=== PATIENT | female | born 1965 | race Caucasian/White ===

== ENCOUNTER 2016-12-21 21:49 | Emergency (ER) | payer MEDICAID ==
[~2016-12-21] VITALS: Ht 160 cm; Wt 90.3 kg
[~2016-12-21 21:49] MED LIST: Z.0.NO CURRENT MEDS
[2016-12-21 21:55] VITALS: PULSE 91; RESP 18; TEMP 98.3; O2SAT 97
[2016-12-21] MEDS ORDERED: ALPR0.5T3 PO (22:03)
--- NOTE | 2016-12-21 22:15 | PD ---
HPI Chief Complaint: Skin Problem Time Seen by Provider: 22:00 Travel History International Travel<30 days: No Contact w/Intl Traveler<30days: No Traveled to known affect area: No History of Present Illness HPI 51-year-old female presents to the emergency room for evaluation of painful lesion to her buttocks that started 3 days ago and has worsened over time. Patient has been applying triple antibiotic ointment and antibiotic Band-Aids to the lesion without improvement in symptoms. States she has history of pilonidal abscess that drained a large amount of pus 4 years ago but has had no problems since then. She denies any significant draining but reports mild drainage on the Band-Aids. Patient reports extreme pain and is requesting pain medication because she is currently staying with her mother in the hospital and has no access to medication. Denies fever, chills, nausea, and vomiting. No history of diabetes. PFSH Past Medical History Medical History: Denies Significant Hx Tetanus Vaccination: Unknown Influenza Vaccination: No ?: Unknown Past Surgical History Surgical History: No Previous Surgery Social History Alcohol Use: No Tobacco Use: No Substance Use: No Allergies-Medications (Allergen,Severity, Reaction): Coded Allergies: No Known Allergies (Unverified , 11/25/12) Reported Meds & Prescriptions Reported Meds & Active Scripts Active Bactrim DS (Sulfamethoxazole-Trimethoprim) 800-160 Mg Tab 1 Tab PO BID Reported Alprazolam 0.5 Mg Tab 0.5 Mg PO Q6H PRN Review of Systems Except as stated in HPI: all other systems reviewed are Neg Physical Exam Narrative GENERAL: Well-nourished, well-developed female in no acute distress. Afebrile. Ambulatory. SKIN: Focused skin assessment warm/dry. There is an erythematous, open lesion over the lower back, just above the intergluteal cleft which measures about 2 cm in diameter. There is no fluctuance or induration. There are several satellite lesions on bilateral lower back. There is a zone of inflammation around it but no lymphangitis. HEAD: Normocephalic. EYES: No scleral icterus. No injection or drainage. NECK: Supple, trachea midline. No JVD or lymphadenopathy. CARDIOVASCULAR: Regular rate and rhythm without murmurs, gallops, or rubs. RESPIRATORY: Breath sounds equal bilaterally. No accessory muscle use. PSYCHIATRIC: No delusional thought processes. No hallucinations. Data Data Last Documented VS Vital Signs Date Time Temp Pulse Resp B/P Pulse Ox O2 Delivery O2 Flow Rate FiO2 12/21/16 21:55 98.3 91 18 97 Orders Ketorolac Inj (Toradol Inj) (12/21/16 22:30) Sulfamet-Trimeth Ds 800-160 Mg (Bactrim (12/21/16 22:30) MDM Medical Decision Making Medical Screen Exam Complete: Yes Emergency Medical Condition: Yes Medical Record Reviewed: Yes Differential Diagnosis MRSA, abscess, pilonidal cyst, folliculitis, shingles Narrative Course 51-year-old female presents to the emergency room for evaluation of a painful lesion to her buttocks that started 3 days ago. Physical exam reveals a bilateral rash on the lower buttocks. It is tender to palpation. The largest lesion is 2 cm with open abrasion. There are satellite lesions to the left and right lower back. Given its bilaterally appearance, this is not shingles. Patient is slightly histrionic and jumps and any palpation. She was requesting something for pain. She was offered Toradol and complained of significant pain with injection. She is ambulatory on discharge. Patient given first dose of Bactrim in the emergency room and discharged with prescription for the same. Told to follow up with her primary care physician or return to the emergency room for worsening symptoms. She understands and agrees to plan. Diagnosis Primary Impression: Cellulitis of lower back Referrals: Primary Care Physician Patient Instructions: Cellulitis (ED), General Instructions Additional Instructions: Rest and drink plenty of fluids. Take Bactrim as directed, until gone. Follow up with a primary care physician. Return to emergency room for worsening symptoms, as discussed. Med/Other Pt SpecificInfo: Prescription(s) given Scripts Sulfamethoxazole-Trimethoprim (Bactrim DS)800-160 Mg Tab1 Tab PO BID #20 TAB Ref 0 Prov:Kingsley Charles MD 12/21/16 Disposition: 01 DISCHARGE HOME Condition: Stable Savanna Woody Dec 21, 2016 22:15
[2016-12-21] MEDS ORDERED: BACT800T5 PO (22:16)
[2016-12-21] MEDS ORDERED: SULFAMETHOXAZOLE-TRIMETHOPRIM DS 800-160 MG TAB PO ONE (22:30)
[2016-12-21] MEDS ORDERED: KETOROLAC TROMETHAMINE 60 MG/2 ML (IM) VIAL IM ONE (22:30)
== END 2016-12-21 22:45 | disposition home or self-care (01) ==
LOC: PHEFT 21:49
DX: L03.312 Cellulitis of back [any part except buttock and flank] (principal); R21 Rash and other nonspecific skin eruption; Z87.2 Personal history of diseases of the skin and subcutaneous tissue
CPT/HCPCS: 96372; 99284; J1885

== ENCOUNTER 2017-06-09 06:33 | Observation (INO) | payer MEDICAID ==
[~2017-06-09 06:33] MED LIST changes: +LEVA750T9 PO; +METR250 PO; -Z.0.NO CURRENT MEDS
[2017-06-09] MEDS ORDERED: RESP: ALBUTEROL 2.5 MG/IPRATROPIUM 0.5 MG NEB (PRN) INH (06:45)
[2017-06-09] MEDS ORDERED: ONDANSETRON HCL 4 MG/2 ML VIAL IV PUSH PRN ×2 (06:45→10:45)
[2017-06-09] MEDS ORDERED: SODIUM CHLORIDE 0.9% FLUSH 10 ML FLUSH IV FLUSH PRN (06:45)
[2017-06-09] MEDS: SODIUM CHLORIDE 0.9% FLUSH 10 ML FLUSH IV FLUSH SCH ×2 (09:00→21:37)
[2017-06-09] MEDS: RESP: ALBUTEROL 2.5 MG/IPRATROPIUM 0.5 MG NEB (SCH) INH ×3 (10:30→20:47)
[2017-06-09] MEDS ORDERED: ACETAMINOPHEN/HYDROcodone 325 MG/7.5 MG TAB PO PRN (11:00)
--- NOTE | 2017-06-09 11:27 | HHI.HP ---
HPI Service [facility] Hospitalists Primary Care Physician No Primary Care Physician Admission Diagnosis Diagnoses: Chief Complaint: myalgias,cough,fever Travel History International Travel<30 Days: No Contact w/Intl Traveler <30 Da: No Traveled to Known Affected Are: No History of Present Illness Written by Sirisha Castorena, acting as scribe for Dr. Pizarro on 06/09/17 at 11: 13. 52-year-old female with history of remote hypertension, anxiety, presents with ongoing complaints of myalgias, fevers, cough, weakness. The patient reports she has been sick for at least a few months however worse over the past week. She reports a dry nonproductive hacking cough. She had significant subjective fevers, chills, and night sweats. She also reports diffuse upper abdominal pains and diffuse body aches. She also reports diffuse lymphadenopathy throughout her arms and neck. She explains her mother was in the hospital with pneumonia and septic shock, then recently after prolonged hospitalization. She reports her 13-year-old daughter has also been sick with the same symptoms and is currently admitted to the hospital. The patient has been under a lot of stress with her mother being sick and planning the . [facility] CT showed RLL pneumonia, given IV antibiotics and IV pain medications, felt improved, however then experienced intractable nausea/vomiting/diarrhea, therefore she was admitted to [facility]. Review of Systems Except as stated in HPI: all other systems reviewed are Neg Past Family Social History Past Medical History Remote hypertension on meds for a few weeks, none recently Anxiety Past Surgical History Hernia repair with mesh Reported Medications Denies taking any medications on a regular basis. Allergies: Coded Allergies: No Known Allergies (Unverified Adverse Reaction, Unknown, 06/08/17) Active Ordered Medications Current Medications Medications (Trade) Dose Ordered Sig/Prince Route Start Time Stop Time Status Last Admin Levofloxacin/ Dextrose 150 ml @ 100 mls/hr Q24H IV 06/10/17 02:00 (NS Flush) 2 ml UNSCH PRN IV FLUSH 06/09/17 06:45 (NS Flush) 2 ml BID IV FLUSH 06/09/17 09:00 (Duoneb Neb) 1 ampule Q6HR NEB INH 06/09/17 10:30 (Duoneb Neb) 1 ampule Q4HR NEB PRN INH 06/09/17 06:45 (Lovenox Inj) 40 mg Q24H SQ 06/09/17 11:00 Sodium Chloride 1,000 ml @ 100 mls/hr Q10H IV 06/09/17 10:00 (Zofran Inj) 4 mg Q6H PRN IV PUSH 06/09/17 10:45 (Lactinex) 1 tab TID PO 06/09/17 13:00 ([place] 5-325 Mg) 1 tab Q4H PRN PO 06/09/17 11:00 ([place] 7.5-325 Mg) 1 tab Q4H PRN PO 06/09/17 11:00 Family History Does not know father's history Mother with COPD, CHF, recently with pneumonia and septic shock Social History Denies any tobacco, alcohol, or illicit drug use. Physical Exam Vital Signs Upon arrival to ED: Temp 98.3 HR 111 RR 18 BP 132/87 O2 98% on RA Physical Exam GENERAL: Well-nourished, well-developed middle aged female patient in [facility]. SKIN: Warm and dry. No rash. +lymphadenopathy throughout upper extremities and anterior cervical. HEAD: Normocephalic. Atraumatic. EYES: Pupils equal and round. No scleral icterus. No injection or drainage. ENT: No nasal bleeding or discharge. Mucous membranes pink and moist. NECK: Supple. Trachea midline. CARDIOVASCULAR: Regular rate and rhythm. S1, S2 noted. No murmur appreciated. RESPIRATORY: No accessory muscle use. Clear to auscultation. Breath sounds equal bilaterally. GASTROINTESTINAL: Abdomen soft, nondistended, mild diffuse upper abdominal TTP. Normoactive bowel sounds x4. MUSCULOSKELETAL: No obvious deformities. Extremities without clubbing, cyanosis , or edema. NEUROLOGICAL: Awake and alert. No obvious cranial nerve deficits. Motor grossly within normal limits. Normal speech. PSYCHIATRIC: Appropriate mood and affect; insight and judgment normal. Laboratory WBC 11.8K RBC 4.63 Hgb 14.8 Hct 42.8 Plt 264K Na 135 K 4.9 Chloride 103 Carbon Dioxide 24.0 BUN 16 Cr 0.80 GFR 75 Imaging 06/08 CT Abdomen: The spleen, pancreas, kidneys, adrenals are unremarkable. There is no evidence for any appreciable pathological adenopathy, free fluid, or bowel obstruction. Slight pericardial effusion is seen with maximum thickness of 1.6 cm. Right lung base infiltrate is present not present previously suspicious for pneumonia. The liver is extensively fatty with areas of focal sparing. Caprini VTE Risk Assessment Caprini VTE Risk Assessment: No/Low Risk (score <= 1) Caprini Risk Assessment Model Point Value = 1 Point Value = 2 Point Value = 3 Point Value = 5 Age 41-60 Minor surgery BMI > 25 kg/m2 Swollen legs Varicose veins or History of unexplained or recurrent spontaneous Oral contraceptives or hormone replacement Sepsis (< 1 month) Serious lung disease, including pneumonia (< 1 month) Abnormal pulmonary function Acute myocardial infarction Congestive heart failure (< 1 month) History of inflammatory bowel disease Medical patient at bed rest Age 61-74 Arthroscopic surgery Major open surgery (> 45 min) Laparoscopic surgery (> 45 min) Malignancy Confined to bed (> 72 hours) Immobilizing plaster cast Central venous access Age >= 75 History of VTE Family history of VTE Factor V Leiden Prothrombin [id number] Lupus anticoagulant Anticardiolipin antibodies Elevated serum homocysteine Heparin-induced thrombocytopenia Other congenital or acquired thrombophilia Stroke (< 1 month) Elective arthroplasty Hip, pelvis, or leg fracture Acute spinal cord injury (< 1 month) Prophylaxis Regimen Total Risk Factor Score Risk Level Prophylaxis Regimen 0-1 Low Early ambulation 2 Moderate Order ONE of the following: *Sequential Compression Device (SCD) *Heparin 5000 units SQ BID 3-4 Higher Order ONE of the following medications: *Heparin 5000 units SQ TID *Enoxaparin/Lovenox 40 mg SQ daily (WT < 150 kg, CrCl > 30 mL/min) *Enoxaparin/Lovenox 30 mg SQ daily (WT < 150 kg, CrCl > 10-29 mL/min) *Enoxaparin/Lovenox 30 mg SQ BID (WT < 150 kg, CrCl > 30 mL/min) AND/OR *Sequential Compression Device (SCD) 5 or more Highest Order ONE of the following medications: *Heparin 5000 units SQ TID (Preferred with Epidurals) *Enoxaparin/Lovenox 40 mg SQ daily (WT < 150 kg, CrCl > 30 mL/min) *Enoxaparin/Lovenox 30 mg SQ daily (WT < 150 kg, CrCl > 10-29 mL/min) *Enoxaparin/Lovenox 30 mg SQ BID (WT < 150 kg, CrCl > 30 mL/min) AND *Sequential Compression Device (SCD) Assessment and Plan Problem List: (1) Pneumonia ICD Code: J18.9 - Pneumonia, unspecified organism (2) Abdominal pain ICD Code: R10.9 - Unspecified abdominal pain Assessment and Plan 52-year-old female with history of remote hypertension, anxiety, presents with ongoing complaints of myalgias, fevers, cough, weakness. [facility] Community Acquired Pneumonia: patient with multiple complaints of subjective fevers/chills, myalgias, cough, abdominal pain; likely all related to pneumonia. -CT abd/pelvis done in [place] ER 06/08, images reviewed, remarkable for new RLL pneumonia -WBC 11.8K and tachycardic HR 111 -Urinary legionella antigen negative -Influenza negative -Continue on antibiotics with IV Levaquin with probiotic -Supportive treatment with Robitussin prn cough, Duonebs prn SOB, [place] prn pain -Monitor for improvement Abdominal Pain: suspect secondary to pneumonia, CT abdomen negative for any acute abdominal findings -supportive treatment with IVF, antiemetics prn, and pain control with [place] prn Diarrhea: after receiving IV levaquin while in ER -check stool for Cdifficile PCR -started on Lactinex -monitor for improvement DVT Prophylaxis: Lovenox sq Discussed Condition With Patient, CDU RN This note was transcribed by scribcatarino [Sirisha Castorena]. I, Dr. Keith Pizarro personally performed the history, physical exam, and medical decision making; and confirmed the accuracy of the information in the transcribed note. Authenticated by Dr. Keith Pizarro on 06/09/17 at 12:04. Sirisha Castorena PA-C Jun 09, 2017 11:27 Keith Pizarro MD Jun 09, 2017 12:04
[2017-06-09] MEDS: ACETAMINOPHEN/HYDROcodone 325 MG/5 MG TAB PO PRN ×2 (11:30→17:01)
[2017-06-09] MEDS: LACTOBACILLUS ACIDOPHILUS TAB PO SCH ×2 (11:30→17:01)
[2017-06-09] MEDS: ENOXAPARIN SODIUM 40 MG/0.4 ML SYRINGE SQ SCH (11:30)
[2017-06-09] MEDS ORDERED: guaiFENesin/DEXTROMETHORPHAN 200 MG/20 MG/10 ML CUP PO PRN (11:45)
[2017-06-09] MEDS: SODIUM CHLOR 0.9% 1000 ML INJ 1,000 ML IV SCH ×2 (12:44→21:37)
[2017-06-09 16:20] VITALS: BP 124/58; PULSE 86; RESP 21; TEMP 98.1; O2SAT 98
[2017-06-09] MEDS ORDERED: LACT PO (17:15)
[2017-06-09] MEDS ORDERED: LEVA750T9 PO (17:15)
--- NOTE | 2017-06-09 17:16 | HHI.DCPOC ---
Discharge Care Plan Diagnosis: (1) Pneumonia Your Health Problems Are: Cough Goals to Promote Your Health * To prevent worsening of your condition and complications * To maintain your health at the optimal level Directions to Meet Your Goals Take your medications as prescribed Follow your dietary instruction Follow activity as directed Keep your appointments as scheduled Take your immunizations and boosters as scheduled If your symptoms worsen call your PCP, if no PCP go to Urgent Care Center or Emergency Room Smoking is Dangerous to Your Health. Avoid second hand smoke Call the 24-hour hour crisis hotline for domestic abuse at Sirisha Castorena PA-C Jun 09, 2017 5:16 pm
[2017-06-09 20:47] VITALS: O2SAT 97
[2017-06-09 21:16] VITALS: BP 137/63; PULSE 91; RESP 20; TEMP 97.9; O2SAT 95
[2017-06-09] MEDS: KETOROLAC TROMETHAMINE 30 MG/ML (IVP) VIAL IV PUSH PRN (21:37)
[2017-06-10] VITALS (8 sets, daily range): BP systolic 97–152; BP diastolic 52–84; PULSE 79–88; RESP 18–21; TEMP 97.8–98.2; O2SAT 94–97
[2017-06-10] MEDS: RESP: ALBUTEROL 2.5 MG/IPRATROPIUM 0.5 MG NEB (SCH) INH ×4 (02:43→19:18)
[2017-06-10] MEDS: LEVOFLOXACIN 750 MG PREMIX INJ 150 ML IV SCH (02:54)
[2017-06-10] MEDS: KETOROLAC TROMETHAMINE 30 MG/ML (IVP) VIAL IV PUSH PRN ×2 (03:55→14:57)
[2017-06-10 05:46] LABS: BASOPHIL % 0.5 % (0.0-2.0); EOSINOPHIL % 0.9 % (0.0-4.0); HEMOGLOBIN 12.2 GM/DL (11.6-15.3); LYMPH % 34.4 % (9.0-44.0); LYMPHOCYTE # 1.2 TH/MM3 (1.0-4.8); MEAN CELL VOLUME 94.5 FL (80.0-100.0); MEAN CORPUSCULAR HEMOGLOBIN 32.1 PG (27.0-34.0); MEAN CORPUSCULAR HGB CONC 33.9 % (32.0-36.0); MEAN PLATELET VOLUME 8.4 FL (7.0-11.0); MONO % 8.4 % (0.0-8.0); MONOCYTE # 0.3 TH/MM3 (0-0.9); NEUT % 55.8 % (16.0-70.0); PLATELET COUNT 224 TH/MM3 (150-450); RED BLOOD COUNT 3.81 MIL/MM3 (4.00-5.30); RED CELL DISTRIBUTION WIDTH 12.5 % (11.6-17.2); WHITE BLOOD COUNT 3.6 TH/MM3 (4.0-11.0)
[2017-06-10 06:01] LABS: CALCIUM 7.7 MG/DL (8.5-10.1); CREATININE 0.81 MG/DL (0.50-1.00)
[2017-06-10] MEDS: SODIUM CHLOR 0.9% 1000 ML INJ 1,000 ML IV SCH ×2 (06:08→16:38)
[2017-06-10] MEDS ORDERED: POTASSIUM CHLORIDE 20 MEQ CONTROLLED RELEASE TAB PO ONE (08:00)
[2017-06-10] MEDS ORDERED: HYDROmorphone HCL 2 MG TAB PO ONE (08:45)
[2017-06-10] MEDS: SODIUM CHLORIDE 0.9% FLUSH 10 ML FLUSH IV FLUSH SCH ×2 (09:00→21:00)
[2017-06-10] MEDS: LACTOBACILLUS ACIDOPHILUS TAB PO SCH ×3 (09:06→16:36)
[2017-06-10] MEDS: ENOXAPARIN SODIUM 40 MG/0.4 ML SYRINGE SQ SCH (09:07)
--- NOTE | 2017-06-10 09:58 | HHI.PR ---
Subjective Remarks Follow up for pneumonia, abdominal pain, diarrhea. The patient reports minimal improvement overnight. She reports continued abdominal pain, worse at RUQ. She is requesting the same pain medication she received in the ER prior to arrival. Denies any nausea or vomiting. She reports multiple episodes of green diarrhea overnight. No documented fevers. She has continued nonproductive cough. She does not feel ready for discharge. Objective Vitals Vital Signs Date Time Temp Pulse Resp B/P (MAP) Pulse Ox O2 Delivery O2 Flow Rate FiO2 06/10/17 08:10 97.8 79 21 114/52 (72) 94 06/10/17 07:34 96 21 06/10/17 04:55 13 06/10/17 04:03 98.0 80 19 97/53 (68) 96 06/10/17 01:25 14 06/10/17 01:24 98.2 82 20 127/60 (82) 94 06/09/17 21:16 97.9 91 20 137/63 (87) 95 06/09/17 20:47 97 06/09/17 18:09 18 06/09/17 16:20 98.1 86 21 124/58 (80) 98 Result Diagram: 06/10/17 0431 06/10/17 0431 Imaging 06/08 CT Abdomen: The spleen, pancreas, kidneys, adrenals are unremarkable. There is no evidence for any appreciable pathological adenopathy, free fluid, or bowel obstruction. Slight pericardial effusion is seen with maximum thickness of 1.6 cm. Right lung base infiltrate is present not present previously suspicious for pneumonia. The liver is extensively fatty with areas of focal sparing. Objective Remarks GENERAL: Well-nourished, well-developed middle aged female patient in [facility]. SKIN: Warm and dry. No rash. +lymphadenopathy throughout upper extremities and anterior cervical. HEENT: Normocephalic. Atraumatic.Pupils equal and round. Mucous membranes pink and moist. NECK: Supple. Trachea midline. CARDIOVASCULAR: Regular rate and rhythm. S1, S2 noted. No murmur appreciated. RESPIRATORY: No accessory muscle use. Clear to auscultation. Breath sounds equal bilaterally. GASTROINTESTINAL: Abdomen soft, nondistended, mild diffuse upper abdominal TTP. Normoactive bowel sounds x4. MUSCULOSKELETAL: No obvious deformities. Extremities without clubbing, cyanosis , or edema. NEUROLOGICAL: Awake and alert. No obvious cranial nerve deficits. Motor grossly within normal limits. Normal speech. PSYCHIATRIC: Appropriate mood and affect; insight and judgment normal. Medications and IVs Current Medications Medications (Trade) Dose Ordered Sig/Prince Route Start Time Stop Time Status Last Admin Levofloxacin/ Dextrose 150 ml @ 100 mls/hr Q24H IV 06/10/17 02:00 06/10/17 02:54 (NS Flush) 2 ml UNSCH PRN IV FLUSH 06/09/17 06:45 06/10/17 03:56 (NS Flush) 2 ml BID IV FLUSH 06/09/17 09:00 06/09/17 21:37 (Duoneb Neb) 1 ampule Q6HR NEB INH 06/09/17 10:30 06/10/17 07:32 (Duoneb Neb) 1 ampule Q4HR NEB PRN INH 06/09/17 06:45 (Lovenox Inj) 40 mg Q24H SQ 06/09/17 11:00 06/10/17 09:07 Sodium Chloride 1,000 ml @ 100 mls/hr Q10H IV 06/09/17 10:00 06/10/17 06:08 (Zofran Inj) 4 mg Q6H PRN IV PUSH 06/09/17 10:45 (Lactinex) 1 tab TID PO 06/09/17 13:00 06/10/17 09:06 ([place] 5-325 Mg) 1 tab Q4H PRN PO 06/09/17 11:00 06/09/17 17:01 ([place] 7.5-325 Mg) 1 tab Q4H PRN PO 06/09/17 11:00 06/10/17 00:25 (Robitussin Dm 200-20 Mg/10 ml Liq) 10 ml Q4H PRN PO 06/09/17 11:45 (Toradol Inj) 15 mg Q6H PRN IV PUSH 06/09/17 21:15 06/14/17 21:14 06/10/17 03:55 A/P Problem List: (1) Pneumonia ICD Code: J18.9 - Pneumonia, unspecified organism (2) Abdominal pain ICD Code: R10.9 - Unspecified abdominal pain Assessment and Plan 52-year-old female with history of remote hypertension, anxiety, presents with ongoing complaints of myalgias, fevers, cough, weakness. Transferred from [facility] ER. Community Acquired Pneumonia: patient with multiple complaints of subjective fevers/chills, myalgias, cough, abdominal pain; likely all related to pneumonia. -CT abd/pelvis done in [place] ER 06/08, images reviewed, remarkable for new RLL pneumonia -WBC 11.8K and tachycardic HR 111 -Urinary legionella antigen negative -Influenza negative -Continue on antibiotic IV Levaquin with probiotic -Supportive treatment with Robitussin prn cough, Duonebs prn SOB, [place] prn pain -Monitor for improvement Abdominal Pain: suspect secondary to pneumonia, CT abdomen negative for any acute abdominal findings -supportive treatment with IVF, antiemetics prn, and pain control with [place] prn Diarrhea: after receiving IV levaquin while in ER. If C.diff negative, suspect viral gastroenteritis. -stool negative for Cdifficile -started on Lactinex -monitor for improvement -multiple episodes of watery green diarrhea overnight, will repeat Cdiff and check stool cultures Fatty Liver: seen on abdominal CT. -LFTs wnl -outpatient f/up DVT Prophylaxis: Lovenox sq Discharge Planning Not yet ready for discharge. Pending further clinical improvement. Possible discharge tomorrow. Problem Qualifiers (1) Pneumonia: Qualified Codes: J18.1 - Lobar pneumonia, unspecified organism Sirisha Castorena PA-C Jun 10, 2017 9:58 am
[2017-06-10] MEDS ORDERED: LOPERAMIDE HCL 2 MG CAP PO ONE (13:30)
[2017-06-10] MEDS ORDERED: LOPERAMIDE HCL 2 MG CAP PO PRN (13:30)
[2017-06-10] MEDS ORDERED: HYDROmorphone HCL 2 MG TAB PO PRN (15:30)
[2017-06-10] MEDS: HYDROmorphone HCL 2 MG TAB PO PRN ×2 (16:37→21:42)
[2017-06-11 00:20] VITALS: BP 135/88; PULSE 94; RESP 18; TEMP 98.8; O2SAT 95
[2017-06-11] MEDS: LEVOFLOXACIN 750 MG PREMIX INJ 150 ML IV SCH (00:38)
[2017-06-11] MEDS: RESP: ALBUTEROL 2.5 MG/IPRATROPIUM 0.5 MG NEB (SCH) INH ×3 (02:35→16:00)
[2017-06-11] MEDS: SODIUM CHLOR 0.9% 1000 ML INJ 1,000 ML IV SCH ×2 (05:50→15:17)
[2017-06-11 06:32] VITALS: BP 124/75; PULSE 90; RESP 18; TEMP 98.4; O2SAT 96
[2017-06-11] MEDS: HYDROmorphone HCL 2 MG TAB PO PRN ×2 (07:31→17:23)
[2017-06-11] MEDS: LACTOBACILLUS ACIDOPHILUS TAB PO SCH ×2 (07:31→13:00)
[2017-06-11] MEDS: SODIUM CHLORIDE 0.9% FLUSH 10 ML FLUSH IV FLUSH SCH (07:31)
[2017-06-11 08:22] VITALS: BP 159/96; PULSE 89; RESP 18; TEMP 98.4; O2SAT 96
[2017-06-11] MEDS: KETOROLAC TROMETHAMINE 30 MG/ML (IVP) VIAL IV PUSH PRN ×2 (09:17→17:24)
--- NOTE | 2017-06-11 09:24 | HHI.PR ---
Subjective Remarks Follow up for pneumonia, abdominal pain, Gladstone virus with diarrhea. The patient has multiple complaints today. She is very unhappy with night nurse and requests formal complaint be filed. She also reports right sided throbbing headache with right sided facial numbness and tingling that began last night after she became upset and her blood pressure elevated. Denies any photophobia, lightheadedness, dizziness, visual changes, or unilateral extremity weakness. She reports continued profuse watery green diarrhea overnight with associated diffuse abdominal cramping. Denies any nausea or vomiting. She was able to tolerate oral intake last night. Denies fevers/chills. She reports continued cough productive of yellow sputum. Denies any shortness of breath or chest pain. Denies any other medical complaints at this time. Objective Vitals Vital Signs Date Time Temp Pulse Resp B/P (MAP) Pulse Ox O2 Delivery O2 Flow Rate FiO2 06/11/17 08:22 98.4 89 18 159/96 (117) 96 06/11/17 06:32 98.4 90 18 124/75 (91) 96 06/11/17 00:20 98.8 94 18 135/88 (104) 95 06/10/17 22:45 15 06/10/17 19:35 88 18 152/84 (106) 97 06/10/17 19:18 97 06/10/17 16:13 98.2 88 19 120/58 (78) 95 06/10/17 11:11 97.8 81 18 134/65 (88) 96 I/O 06/10/17 06/10/17 06/10/17 06/11/17 06/11/17 06/11/17 07:00 15:00 23:00 07:00 15:00 23:00 Intake Total 2850 ml Output Total 950 ml Balance 1900 ml Intake Oral 750 ml IV Total 2100 ml Output Urine Total 650 ml Stool Total 300 ml # Voids 2 # Bowel Movements 3 Result Diagram: 06/10/17 04306/10/17 043 Imaging 06/08 CT Abdomen: The spleen, pancreas, kidneys, adrenals are unremarkable. There is no evidence for any appreciable pathological adenopathy, free fluid, or bowel obstruction. Slight pericardial effusion is seen with maximum thickness of 1.6 cm. Right lung base infiltrate is present not present previously suspicious for pneumonia. The liver is extensively fatty with areas of focal sparing. Objective Remarks GENERAL: Well-nourished, well-developed middle aged female patient in [facility]. SKIN: Warm and dry. No rash. HEENT: Normocephalic. Atraumatic. PERRLA. Mucous membranes pink and moist. CARDIOVASCULAR: Regular rate and rhythm. S1, S2 noted. No murmur appreciated. RESPIRATORY: No accessory muscle use. Clear to auscultation. Breath sounds equal bilaterally. GASTROINTESTINAL: Abdomen soft, nondistended, nontender. Normoactive bowel sounds x4. MUSCULOSKELETAL: No obvious deformities. Extremities without clubbing, cyanosis , or edema. NEUROLOGICAL: Awake and alert. No obvious cranial nerve deficits. Motor grossly within normal limits. Normal speech. Facial sensation to light touch slightly subjectively diminished on the right compared to the left, possible slight right eyelid droop vs patient prefer to keep right eye closed due to headache, possible slight asymmetric eyebrow raise on the right, however patient able to close both eyes against resistance, bilateral buccal strength intact against resistance, no tongue deviation; neurological exam inconsistent with any deficit. 5/5 strength throughout bilateral upper and lower extremities. PSYCHIATRIC: Anxious mood. Medications and IVs Current Medications Medications (Trade) Dose Ordered Sig/Prince Route Start Time Stop Time Status Last Admin Levofloxacin/ Dextrose 150 ml @ 100 mls/hr Q24H IV 06/10/17 02:00 06/11/17 00:38 (NS Flush) 2 ml UNSCH PRN IV FLUSH 06/09/17 06:45 06/10/17 03:56 (NS Flush) 2 ml BID IV FLUSH 06/09/17 09:00 06/11/17 07:31 (Duoneb Neb) 1 ampule Q6HR NEB INH 06/09/17 10:30 06/11/17 02:35 (Duoneb Neb) 1 ampule Q4HR NEB PRN INH 06/09/17 06:45 (Lovenox Inj) 40 mg Q24H SQ 06/09/17 11:00 06/10/17 09:07 Sodium Chloride 1,000 ml @ 100 mls/hr Q10H IV 06/09/17 10:00 06/11/17 05:50 (Zofran Inj) 4 mg Q6H PRN IV PUSH 06/09/17 10:45 06/11/17 00:38 (Lactinex) 1 tab TID PO 06/09/17 13:00 06/11/17 07:31 (Robitussin Dm 200-20 Mg/10 ml Liq) 10 ml Q4H PRN PO 06/09/17 11:45 (Toradol Inj) 15 mg Q6H PRN IV PUSH 06/09/17 21:15 06/14/17 21:14 06/10/17 14:57 (Imodium) 2 mg Q4H PRN PO 06/10/17 13:30 (Dilaudid) 1 mg Q4H PRN PO 06/10/17 15:30 (Dilaudid) 2 mg Q4H PRN PO 06/10/17 15:30 06/11/17 07:31 A/P Problem List: (1) Pneumonia ICD Code: J18.9 - Pneumonia, unspecified organism (2) Abdominal pain ICD Code: R10.9 - Unspecified abdominal pain Assessment and Plan 52-year-old female with history of remote hypertension, anxiety, presents with ongoing complaints of myalgias, fevers, cough, weakness. Transferred from [facility] ER. Community Acquired Pneumonia: patient with multiple complaints of subjective fevers/chills, myalgias, cough, abdominal pain; likely all related to pneumonia. -CT abd/pelvis done in [place] [facility] 06/08, images reviewed, remarkable for new RLL pneumonia -WBC 11.8K and tachycardic HR 111 -Urinary legionella antigen negative -Influenza negative -Continue on antibiotic IV Levaquin with probiotic -Supportive treatment with Robitussin prn cough, Duonebs prn SOB, [place] prn pain -Monitor for improvement Gastroenteritis secondary to Glad[place] Virus with Abdominal Pain/Diarrhea. CT abdomen negative for any acute abdominal findings. Stool positive for Norovirus , negative for C.diff. -continue supportive treatment with IVF, antiemetics prn, and pain control with [place] prn -continue on Lactinex tid -Imodium prn -monitor for improvement -patient continues to have multiple episodes of watery green diarrhea overnight; at high risk for dehydration if discharged prior to diarrhea improvement Right Sided Headache/Facial Paresthesias: suspect multifactorial secondary to headache and viral illness -check head CT to rule out CVA -continue pain control with IV toradol and po dilaudid prn -monitor for improvement Fatty Liver: seen on abdominal CT. -LFTs wnl -outpatient f/up DVT Prophylaxis: Lovenox sq Discharge Planning Not yet ready for discharge. Pending head CT and further clinical improvement of diarrhea. Problem Qualifiers (1) Pneumonia: Qualified Codes: J18.1 - Lobar pneumonia, unspecified organism Sirisha Castorena PA-C Jun 11, 2017 9:24 am
[2017-06-11] MEDS: ENOXAPARIN SODIUM 40 MG/0.4 ML SYRINGE SQ SCH (10:55)
[2017-06-11 11:50] VITALS: BP 139/79; PULSE 74; RESP 18; TEMP 98; O2SAT 97
[2017-06-11 12:55] LABS: AUTOMATED NEUTROPHIL # 3.6 TH/MM3 (1.8-7.7); BASOPHIL % 0.3 % (0.0-2.0); EOSINOPHIL # 0.1 TH/MM3 (0-0.4); EOSINOPHIL % 1.2 % (0.0-4.0); HEMATOCRIT 37.2 % (35.0-46.0); HEMOGLOBIN 12.8 GM/DL (11.6-15.3); LYMPH % 30.1 % (9.0-44.0); LYMPHOCYTE # 1.8 TH/MM3 (1.0-4.8); MEAN CORPUSCULAR HEMOGLOBIN 32.2 PG (27.0-34.0); MEAN CORPUSCULAR HGB CONC 34.3 % (32.0-36.0); MEAN PLATELET VOLUME 8.2 FL (7.0-11.0); MONO % 7.1 % (0.0-8.0); MONOCYTE # 0.4 TH/MM3 (0-0.9); NEUT % 61.3 % (16.0-70.0); PLATELET COUNT 260 TH/MM3 (150-450); RED BLOOD COUNT 3.96 MIL/MM3 (4.00-5.30); RED CELL DISTRIBUTION WIDTH 12.1 % (11.6-17.2); WHITE BLOOD COUNT 5.9 TH/MM3 (4.0-11.0)
[2017-06-11 13:13] LABS: ALBUMIN 3.2 GM/DL (3.4-5.0); AST (GOT) 26 U/L (15-37); BLOOD UREA NITROGEN 8 MG/DL (7-18); CALCIUM 8.4 MG/DL (8.5-10.1); CHLORIDE 105 MEQ/L (98-107); CREATININE 0.72 MG/DL (0.50-1.00); GLOMERULAR FILTRATION RATE 85 ML/MIN (>89); GLUCOSE,RANDOM 80 MG/DL (74-106); SODIUM (NA) 139 MEQ/L (136-145)
[2017-06-11 13:15] LABS: ALKALINE PHOSPHATASE 63 U/L (45-117); ALT (GPT) 30 U/L (10-53); TOTAL BILIRUBIN ADULT 0.7 MG/DL (0.2-1.0); TOTAL PROTEIN 7.1 GM/DL (6.4-8.2)
--- NOTE | 2017-06-11 14:10 | EKG ---
Date Performed: 06/10/2017 Time Performed: 22:08:26 PTAGE: 52 years EKG: Sinus rhythm LOW QRS VOLTAGE IN PRECORDIAL LEADS NONSPECIFIC T-WAVE ABNORMALITY BORDERLINE ECG NO PREVIOUS TRACING DOCTOR: Shakeel Yañez Interpretating Date/Time 06/11/2017 14:09:44
[2017-06-11 15:31] VITALS: BP 138/80; PULSE 83; RESP 18; TEMP 98.7; O2SAT 96
--- NOTE | 2017-06-11 16:58 | RADRPT ---
EXAM DATE/TIME: 06/11/2017 16:23 [place] COMPARISON: CT BRAIN W/O CONTRAST, November 25, 2012, 18:10. INDICATIONS : Headache, right facial numbness. RADIATION DOSE: 37.17 CTDIvol (mGy) MEDICAL HISTORY : Cardiovascular disease. Hypertension. SURGICAL HISTORY : Hernia ENCOUNTER: Initial ACUITY: 1 day PAIN SCALE: 6/10 LOCATION: cranial TECHNIQUE: Multiple contiguous axial images were obtained of the head. Using automated exposure control and adj ustment of the mA and/or kV according to patient size, radiation dose was kept as low as reasonably a chievable to obtain optimal diagnostic quality images. DICOM format image data is available electro nically for review and comparison. FINDINGS: CEREBRUM: The ventricles are normal for age. No evidence of midline shift, mass lesion, hemorrhage or acute in farction. No extra-axial fluid collections are seen. POSTERIOR FOSSA: The cerebellum and brainstem are intact. The 4th ventricle is midline. The cerebellopontine angle i s unremarkable. EXTRACRANIAL: The visualized portion of the orbits is intact. SKULL: The calvaria is intact. No evidence of skull fracture. CONCLUSION: No acute disease. No significant change has occurred. Devin Gonsalves MD on June 11, 2017 at 16:55 Board Certified Radiologist. This report was verified electronically.
[2017-06-11] MEDS ORDERED: LEVA750T9 PO (17:15)
--- NOTE | 2017-06-11 17:31 | HHI.DS ---
Discharge Summary Admission Date Jun 09, 2017 at 9:59 am Discharge Date: Jun 11, 2017 Admitting Diagnosis (1) Pneumonia ICD Code: J18.9 - Pneumonia, unspecified organism Diagnosis: Principal (2) Excello virus enteritis ICD Code: A08.11 - Acute gastroenteropathy due to Excello agent Diagnosis: Principal (3) Abdominal pain ICD Code: R10.9 - Unspecified abdominal pain Diagnosis: Secondary (4) Facial paresthesia ICD Code: R20.9 - Unspecified disturbances of skin sensation Diagnosis: Secondary Procedures None. Brief History - From Admission 52-year-old female with history of remote hypertension, anxiety, presents with ongoing complaints of myalgias, fevers, cough, weakness. The patient reports she has been sick for at least a few months however worse over the past week. She reports a dry nonproductive hacking cough. She had significant subjective fevers, chills, and night sweats. She also reports diffuse upper abdominal pains and diffuse body aches. She also reports diffuse lymphadenopathy throughout her arms and neck. She explains her mother was in the hospital with pneumonia and septic shock, then recently after prolonged hospitalization. She reports her 13-year-old daughter has also been sick with the same symptoms and is currently admitted to the hospital. The patient has been under a lot of stress with her mother being sick and planning the . The patient was initially seen in the [facility] ED, CT showed RLL pneumonia, given IV antibiotics and IV pain medications, felt improved, however then experienced intractable nausea/vomiting/diarrhea, therefore she was admitted to [facility]. CBC/BMP: 06/11/17 1227 06/11/17 1227 Significant Findings Laboratory Tests Test 06/09/17 12:42 06/10/17 04:31 06/11/17 12:27 White Blood Count 3.6 TH/MM3 (4.0-11.0) Red Blood Count 3.81 MIL/MM3 (4.00-5.30) 3.96 MIL/MM3 (4.00-5.30) Monocytes (%) (Auto) 8.4 % (0.0-8.0) Calcium Level 7.7 MG/DL (8.5-10.1) 8.4 MG/DL (8.5-10.1) Potassium Level 3.3 MEQ/L (3.5-5.1) Estimat Glomerular Filtration Rate 74 ML/MIN (>89) 85 ML/MIN (>89) Albumin 3.2 GM/DL (3.4-5.0) Imaging Last Impressions Head CT 06/11/17 0000 Signed Impressions: Service Date/Time: Sunday, June 11, 2017 16:23 - CONCLUSION: No acute disease. No significant change has occurred. Devin Gonsalves MD PE at Discharge GENERAL: Well-nourished, well-developed middle aged female patient in [facility]. SKIN: Warm and dry. No rash. HEENT: Normocephalic. Atraumatic. Pupils equal and round. Mucous membranes pink and moist. CARDIOVASCULAR: Regular rate and rhythm. S1, S2 noted. No murmur appreciated. RESPIRATORY: No accessory muscle use. Clear to auscultation. Breath sounds equal bilaterally. GASTROINTESTINAL: Abdomen soft, nondistended, nontender. Normoactive bowel sounds x4. MUSCULOSKELETAL: No obvious deformities. Extremities without clubbing, cyanosis , or edema. NEUROLOGICAL: Awake and alert. No obvious cranial nerve deficits. Motor grossly within normal limits. Normal speech. Facial sensation equal and intact now. No facial droop. Symmetrical eyebrow raise and nasolabial folds. No tongue deviation. 5/5 strength throughout bilateral upper and lower extremities. PSYCHIATRIC: Calm pleasant mood. Pt update on day of discharge Patient reassessed this afternoon at 5:15pm. Her facial paresthesias have resolved. Diarrhea much improved. Denies any abdominal pain. No fevers/chills. Cough improving. She is requesting to be discharged. Hospital Course 52-year-old female with history of remote hypertension, anxiety, presents with ongoing complaints of myalgias, fevers, cough, weakness. Transferred from [facility] ER. Community Acquired Pneumonia: patient with multiple complaints of subjective fevers/chills, myalgias, cough, abdominal pain; likely all related to pneumonia. CT abd/pelvis done in [place] ER 06/08, images reviewed, remarkable for new RLL pneumonia. WBC 11.8K and tachycardic HR 111. Urinary legionella antigen negative. Influenza negative. Given antibiotic IV Levaquin with probiotic. Supportive treatment with Robitussin prn cough, Duonebs prn SOB, [place] prn pain. Symptoms improved, patient remained afebrile and on room air throughout admission. Gastroenteritis secondary to Excello Virus with Abdominal Pain/Diarrhea. CT abdomen negative for any acute abdominal findings. Stool positive for Norovirus , negative for C.diff. Continued supportive treatment with IVF, antiemetics prn , and pain control with Dilaudid po prn. Continue on Lactinex tid and Imodium prn. Patient had 2 days of continuous diarrhea during admission, was at high risk for dehydration if discharged prior to diarrhea improving therefore discharge was held. On day of discharge, diarrhea much improved, only 2 episodes throughout the day. BMP was unremarkable. Patient was requesting to go home. Right Sided Headache/Facial Paresthesias: suspect multifactorial secondary to headache and viral illness. Patient was also very upset when these symptoms began. Checked a head CT which was unremarkable. The patient was given IV toradol and the headache and paresthesias resolved prior to discharge. Pt Condition on Discharge: Stable Discharge Disposition: Discharge Home Discharge Time: > 30 minutes Discharge Instructions DIET: Follow Instructions for: As Tolerated, No Restrictions Activities you can perform: Regular-No Restrictions Follow up Referrals: PCP Follow-up - 1 Week New Medications: Lactobacillus Acidophilus (Acidophilus/l-Sporogenes) 35 Million Cell-25 Million Cell Tab 1 TAB PO TID for probiotic, #21 TAB Take while on antibiotics. Continued Medications: Levofloxacin (Levaquin) 750 Mg Tablet 750 MG PO DAILY for Infection for 5 Days, #5 TAB 0 Refills (This prescription has been renewed) Discontinued Medications: Metronidazole (Flagyl) 250 Mg Tab 250 MG PO TID for Infection for 7 Days, TAB 0 Refills Sirisha Castorena PA-C Jun 11, 2017 5:31 pm
== END 2017-06-11 18:22 | disposition home or self-care (01) ==
LOC: NEDDLT 09:49 → NEPFCDU 09:59
PROVIDERS: ADMIT Hospitalist; ATTEND Hospitalist
DX: J18.9 Pneumonia, unspecified organism (principal); A08.11 Acute gastroenteropathy due to Norwalk agent; R10.9 Unspecified abdominal pain; R20.9 Unspecified disturbances of skin sensation; I10 Essential (primary) hypertension; K76.0 Fatty (change of) liver, not elsewhere classified; M79.1 Myalgia
CPT/HCPCS: 70450; 74176; 80048; 80053; 81001; 85025; 87086; 87328; 87329; 87449; 87493; 87506; 87804; 93005; 94640; 94664; 96361; 96365; 96366; 96367; 96372; 96375; 96376; 99285; G0378; J1170; J1650; J1885; J1956; J2405; J2543; J7030